=== PATIENT | male | born 1940 ===

== ENCOUNTER 2018-08-15 07:17 | Inpatient (IN) | payer MEDICARE ==
[2018-08-15] MEDS ORDERED: Midazolam 2 MG/2 ML VIAL ONE (07:33)
[2018-08-15] MEDS ORDERED: Rocuronium 10 mg/ml (5 ml) ONE ×4 (07:33→12:16)
[2018-08-15] MEDS ORDERED: Propofol 10 mg/ml Inj (20 ML) ONE (07:33)
[2018-08-15] MEDS ORDERED: Succinylcholine Chloride 20 mg/ml Syr (5 ml) IV ONE (07:39)
[2018-08-15] MEDS ORDERED: Sodium Chloride 0.9% 10 ML IV ONE (07:41)
[2018-08-15] MEDS ORDERED: ePHEDrine 50 mg/ml Inj ONE (07:41)
[2018-08-15] MEDS ORDERED: Neostigmine 1:1000 (1 mg/ml) Inj ONE (07:44)
[2018-08-15 08:03] VITALS: BMI 26.2
[2018-08-15] MEDS ORDERED: Lactated Ringer's 1,000 ML IV ONE ×3 (08:33→10:30)
--- NOTE | 2018-08-15 08:59 | CP.SDSHP ---
Same Day Surgery H & P - History Proposed Procedure: Robotic right hemicolectomy Pre-Op Diagnosis: colon CA - Previous Medical/Surgical History Pain: 0. No Pain - Allergies Allergies: Allergies No Known Allergies Allergy (Verified 08/15/18 07:28) - Physical Exam Vital Signs: Vital Signs 08/15/18 08/15/18 07:47 07:54 Temperature 97.6 F Pulse Rate 63 63 Respiratory 18 Rate Blood Pressure 132/70 O2 Sat by Pulse 98 Oximetry Neuro: WNL GI: WNL (Soft. nontender.) - {Optional Preform as Required} Abdomen: WNL - Impression Impression: 78M with PMHx of GERD, BPH, w/ hx of colon CA Pt. Evaluated Today:Candidate for Anesthesia & Procedure: Yes - Date & Time Date: 08/15/18 Time: 09:00 Short Stay Discharge - Short Stay Discharge Admitting Diagnosis/Reason for Visit: C18.9 Disposition: HOME/ ROUTINE
[2018-08-15 09:20] LABS: BASO # 0.1 K/uL (0.0-0.2); BASO % 1.2 % (0.0-2.0); EOS # 0.2 K/uL (0.0-0.7); EOS % 2.8 % (0.0-4.0); HEMOGLOBIN 14.3 g/dL (12.0-18.0); LYMPH % 16.8 % (20.0-40.0); MEAN CELL VOLUME 94.7 fl (80.0-94.0); MEAN CORPUSCULAR HEMOGLOBIN 31.5 pg (27.0-31.0); MEAN CORPUSCULAR HGB CONC 33.3 g/dL (33.0-37.0); MEAN PLATELET VOLUME 10.3 fl (7.2-11.7); MONO # 0.5 K/uL (0.0-0.8); NEUT # 4.1 K/uL (1.8-7.0); NEUT % 71.2 % (50.0-75.0); NRBC % 0.1 % (0.0-0.0); RBC 4.54 Mil/uL (4.40-5.90); RED CELL DISTRIBUTION WIDTH 13.7 % (11.5-14.5); WHITE BLOOD COUNT 5.7 K/uL (4.8-10.8)
[2018-08-15] MEDS ORDERED: Bupivacaine 0.5% Inj(30mL) ONE (09:25)
[2018-08-15] MEDS ORDERED: Etomidate 20 mg/10ml Inj IV ONE (09:39)
[2018-08-15] MEDS ORDERED: Morphine 1 mg/ml preservative-free Inj(Duramorph) ONE (10:18)
[2018-08-15] MEDS ORDERED: Sevoflurane - Inhalation Anesthetic Liq (250 ml) ONE (10:20)
[2018-08-15] MEDS ORDERED: Lactated Ringer's 500 ML IV ONE (13:30)
[2018-08-15] MEDS: Lactated Ringer's 1,000 ML IV SCH (14:35)
[2018-08-15] MEDS ORDERED: Naloxone 0.4 mg/ml Inj (Adult) IVP PRN (14:44)
--- NOTE | 2018-08-15 14:50 | PCM.SURG1 ---
Surgeon's Initial Post Op Note - Surgeon's Notes Surgeon: Dr. Patel Validation Scientist: Dr. Mckinley, Dr. Villafuerte PGY3 Type of Anesthesia: General Endo Pre-Operative Diagnosis: right colon CA Operative Findings: see operative report Post-Operative Diagnosis: see operative report Operation Performed: robotic right hemicolectomy Specimen/Specimens Removed: ascending colon. terminal ileum Estimated Blood Loss: EBL {In ML}: 500 Blood Products Given: N/A Drains Used: No Drains Post-Op Condition: Good Date of Surgery/Procedure: 08/15/18 Time of Surgery/Procedure: 10:00
--- NOTE | 2018-08-15 16:22 | RAD ---
Date of service: 08/15/2018 HISTORY: confirm NG tube placement COMPARISON: None available. FINDINGS: BOWEL: Limited evaluation of upper abdomen and lower chest. A nasogastric tube is seen in the right mainstem/right lower lobe bronchus extending to the level of the right hemidiaphragm. It is in appropriately positioned and should be repositioned or replaced. The abdominal bowel gas pattern is unremarkable. No masses or abnormal calcifications are identified. BONES: Normal. OTHER FINDINGS: None. IMPRESSION: Nasogastric tube in appropriately positioned in right mainstem/right lower lobe bronchus. This finding was discussed by telephone with the patient's nurse, Marjorie, at 4:16 p.m. on 08/15/2018. The nurse indicated that the nasogastric tube had already been removed in response to findings on this film.
[2018-08-15] MEDS: ceFAZolin 2 GM in Sodium Chloride 0.9% 100 ML IVPB SCH (17:01)
[2018-08-15 17:11] LABS: BASO % 0.4 % (0.0-2.0); EOS % 0.4 % (0.0-4.0); HEMOGLOBIN 13.5 g/dL (12.0-18.0); LYMPH # 0.8 K/uL (1.0-4.3); LYMPH % 9.9 % (20.0-40.0); MEAN CELL VOLUME 94.7 fl (80.0-94.0); MEAN CORPUSCULAR HEMOGLOBIN 31.8 pg (27.0-31.0); MEAN CORPUSCULAR HGB CONC 33.6 g/dL (33.0-37.0); MEAN PLATELET VOLUME 8.9 fl (7.2-11.7); MONO # 0.3 K/uL (0.0-0.8); MONO % 3.6 % (0.0-10.0); NEUT # 7.1 K/uL (1.8-7.0); NEUT % 85.7 % (50.0-75.0); PLATELET COUNT 182 K/uL (130-400); RBC 4.25 Mil/uL (4.40-5.90); RED CELL DISTRIBUTION WIDTH 13.8 % (11.5-14.5); WHITE BLOOD COUNT 8.3 K/uL (4.8-10.8)
[2018-08-15 17:28] LABS: BLOOD UREA NITROGEN 19 mg/dl (9-20); CALCIUM 8.7 mg/dL (8.4-10.2); GFR NON-AFRICAN AMERICAN > 60
[2018-08-15] MEDS ORDERED: Influenza Vaccine (5 YR UP)/PF 60 MCG/0.5 ML SYR IM ONE (17:47)
[2018-08-15] MEDS ORDERED: Influenza Vaccine 60 mcg/0.5 mL SYR (4YR UP) IM ONE (18:00)
--- NOTE | 2018-08-15 18:19 | CP.CCUPN ---
CCU Subjective - Physician Review Events Since Last Encounter (Free Text): 08/15/18 18:03 The patient was Seen/interviewed and examined by me at the bedside during ICU round, Medical records reviewed and Management issues were discussed and formulated with the house staff. Events reviewed Mr Salomon is a 78 Years old Female with PMHx of BPG, GERD, Arthritis, Cataract and recently diagnosed colon cancer Admitted to the ICU following Robotic right hemicolectomy Procedure done under General Anesthesia and was uneventful EBL:500 Patient was successfully extubated, admitted to ICU hemodynamically stable Alert, Awake, denies any chest pain or SOB CCU Objective - Vital Signs / Intake & Output Vital Signs (Last 4 hours): Vital Signs Temp Pulse Resp BP Pulse Ox 08/15/18 18:00 73 13 132/74 100 08/15/18 17:30 97.6 F 70 10 L 127/68 100 08/15/18 16:55 97.4 F L 65 16 123/67 99 08/15/18 16:40 97.6 F 64 19 112/64 97 08/15/18 16:25 97.7 F 67 17 125/67 96 08/15/18 16:05 64 17 118/67 96 08/15/18 15:50 97.1 F L 67 18 136/85 96 08/15/18 15:35 97.3 F L 67 18 129/71 100 08/15/18 15:20 96.3 F L 76 18 130/75 97 08/15/18 15:05 96.7 F L 74 19 130/64 100 08/15/18 14:50 96.5 F L 74 18 121/66 100 08/15/18 14:35 96.6 F L 77 18 134/79 100 Intake and Output (Last 8hrs): Intake & Output 08/15/18 08/15/18 08/15/18 06:59 14:59 22:59 Intake Total 2900 310 Output Total 200 500 Balance 2700 -190 Weight 167 lb Intake: IV 2900 310 Output: Urine 200 500 Urethral (Mathis) 150 Other: Voiding Method Toilet - Physical Exam Physical Exam Limitations: Positive for: Clinical Condition Head: Positive for: Atraumatic, Normocephalic Pupils: Positive for: PERRL Extroacular Muscles: Positive for: EOMI Conjunctiva: Positive for: Normal. Negative for: Injected, Icteric Respiratory/Chest: Positive for: Clear to Auscultation, Good Air Exchange. Negative for: Respiratory Distress, Accessory Muscle Use, Wheezes, Rales, Retracting Cardiovascular: Positive for: Regular Rate and Rhythm, Normal S1, S2, Peripheal Pulses Present. Negative for: Murmurs, Tachycardic, Bradycardic Abdomen: Positive for: Tenderness, Distention. Negative for: Normal Bowel Sounds Neurological: Positive for: GCS=15, CN II-XII Intact, Speech Normal, Motor Func Grossly Intact, Normal Sensory Function Psychiatric: Positive for: Alert, Oriented x 3, Normal Insight, Normal Concentration - Medications Active Medications: Active Medications Generic Name Dose Route Start Last Admin Trade Name Freq PRN Reason Stop Dose Admin Cefazolin Sodium 2 gm/ Sodium 100 mls @ 100 mls/hr 08/15/18 17:00 08/15/18 17:01 Chloride IVPB 08/16/18 01:59 10 mls Q8 KEIRY Administration Protocol Lactated Ringer's 1,000 mls @ 100 mls/hr 08/15/18 14:45 08/15/18 14:35 Lactated Ringer's IV 200 mls .Q10H KEIRY Administration Morphine Sulfate 0 mg 08/15/18 14:44 Morphine Clothing Man 1 Mg/Ml IV PRN PRN Pain, severe (8-10) Protocol Naloxone HCl 0.1 mg 08/15/18 14:44 Narcan IVP Q2M PRN Shortness of Breath Ondansetron HCl 4 mg 08/15/18 14:45 Zofran Inj IVP Q6 PRN Nausea/Vomiting Ondansetron HCl 4 mg 08/15/18 14:44 Zofran Inj IVP Q8 PRN Nausea/Vomiting Pantoprazole Sodium 40 mg 08/16/18 09:00 Protonix Inj IVP DAILY KEIRY - Patient Studies Lab Studies: Lab Studies 08/15/18 08/15/18 08/15/18 Range/Units 17:00 17:00 13:40 WBC 8.3 (4.8-10.8) K/uL RBC 4.25 L (4.40-5.90) Mil/uL Hgb 13.5 (12.0-18.0) g/dL Hct 40.3 (35.0-51.0) % MCV 94.7 H (80.0-94.0) fl MCH 31.8 H (27.0-31.0) pg MCHC 33.6 (33.0-37.0) g/dL RDW 13.8 (11.5-14.5) % Plt Count 182 (130-400) K/uL MPV 8.9 (7.2-11.7) fl Neut % (Auto) 85.7 H (50.0-75.0) % Lymph % (Auto) 9.9 L (20.0-40.0) % [place] % (Auto) 3.6 (0.0-10.0) % Eos % (Auto) 0.4 (0.0-4.0) % Baso % (Auto) 0.4 (0.0-2.0) % Neut # (Auto) 7.1 H (1.8-7.0) K/uL Lymph # (Auto) 0.8 L (1.0-4.3) K/uL [place] # (Auto) 0.3 (0.0-0.8) K/uL Eos # (Auto) 0.0 (0.0-0.7) K/uL Baso # (Auto) 0.0 (0.0-0.2) K/uL Sodium 138 (132-148) mmol/l Potassium 3.6 (3.6-5.0) MMOL/L Chloride 105 (98-107) mmol/L Carbon Dioxide 24 (22-30) mmol/L Anion Gap 13 (10-20) BUN 19 (9-20) mg/dl Creatinine 0.8 (0.8-1.5) mg/dl Est GFR ( Amer) > 60 Est GFR (Non-Af Amer) > 60 Random Glucose 107 (75-110) mg/dL Calcium 8.7 (8.4-10.2) mg/dL Phosphorus 3.4 (2.5-4.5) mg/dl Magnesium 1.8 (1.6-2.3) MG/DL Blood Type Blood Type Confirm A POSITIVE Antibody Screen Crossmatch BBK History Checked 08/15/18 08/15/18 08/15/18 Range/Units 09:20 08:14 08:14 WBC 5.7 (4.8-10.8) K/uL RBC 4.54 (4.40-5.90) Mil/uL Hgb 14.3 (12.0-18.0) g/dL Hct 43.0 (35.0-51.0) % MCV 94.7 H (80.0-94.0) fl MCH 31.5 H (27.0-31.0) pg MCHC 33.3 (33.0-37.0) g/dL RDW 13.7 (11.5-14.5) % Plt Count 219 (130-400) K/uL MPV 10.3 (7.2-11.7) fl Neut % (Auto) 71.2 (50.0-75.0) % Lymph % (Auto) 16.8 L (20.0-40.0) % [place] % (Auto) 8.0 (0.0-10.0) % Eos % (Auto) 2.8 (0.0-4.0) % Baso % (Auto) 1.2 (0.0-2.0) % Neut # (Auto) 4.1 (1.8-7.0) K/uL Lymph # (Auto) 1.0 (1.0-4.3) K/uL [place] # (Auto) 0.5 (0.0-0.8) K/uL Eos # (Auto) 0.2 (0.0-0.7) K/uL Baso # (Auto) 0.1 (0.0-0.2) K/uL Sodium (132-148) mmol/l Potassium (3.6-5.0) MMOL/L Chloride (98-107) mmol/L Carbon Dioxide (22-30) mmol/L Anion Gap (10-20) BUN (9-20) mg/dl Creatinine (0.8-1.5) mg/dl Est GFR ( Amer) Est GFR (Non-Af Amer) Random Glucose (75-110) mg/dL Calcium (8.4-10.2) mg/dL Phosphorus (2.5-4.5) mg/dl Magnesium (1.6-2.3) MG/DL Blood Type A POSITIVE Cancelled Blood Type Confirm Antibody Screen Negative Cancelled Crossmatch See Detail See Detail BBK History Checked No verified bt Cancelled Laboratory Results - last 24 hr 0108/15/18 08/15/18 08:14 08:14 09:20 WBC 5.7 RBC 4.54 Hgb 14.3 Hct 43.0 MCV 94.7 H MCH 31.5 H MCHC 33.3 RDW 13.7 Plt Count 219 MPV 10.3 Neut % (Auto) 71.2 Lymph % (Auto) 16.8 L [place] % (Auto) 8.0 Eos % (Auto) 2.8 Baso % (Auto) 1.2 Neut # (Auto) 4.1 Lymph # (Auto) 1.0 [place] # (Auto) 0.5 Eos # (Auto) 0.2 Baso # (Auto) 0.1 Sodium Potassium Chloride Carbon Dioxide Anion Gap BUN Creatinine Est GFR ( Amer) Est GFR (Non-Af Amer) Random Glucose Calcium Phosphorus Magnesium Blood Type Cancelled A POSITIVE Blood Type Confirm Antibody Screen Cancelled Negative Crossmatch See Detail See Detail BBK History Checked Cancelled No verified bt 08/15/18 08/15/18 08/15/18 13:40 17:00 17:00 WBC 8.3 RBC 4.25 L Hgb 13.5 Hct 40.3 MCV 94.7 H MCH 31.8 H MCHC 33.6 RDW 13.8 Plt Count 182 MPV 8.9 Neut % (Auto) 85.7 H Lymph % (Auto) 9.9 L [place] % (Auto) 3.6 Eos % (Auto) 0.4 Baso % (Auto) 0.4 Neut # (Auto) 7.1 H Lymph # (Auto) 0.8 L [place] # (Auto) 0.3 Eos # (Auto) 0.0 Baso # (Auto) 0.0 Sodium 138 Potassium 3.6 Chloride 105 Carbon Dioxide 24 Anion Gap 13 BUN 19 Creatinine 0.8 Est GFR ( Amer) > 60 Est GFR (Non-Af Amer) > 60 Random Glucose 107 Calcium 8.7 Phosphorus 3.4 Magnesium 1.8 Blood Type Blood Type Confirm A POSITIVE Antibody Screen Crossmatch BBK History Checked Radiology Impressions: Radiology Impressions Abdomen X-Ray 08/15/18 15:00 IMPRESSION: Nasogastric tube in appropriately positioned in right mainstem/right lower lobe bronchus. This finding was discussed by telephone with the patient's nurse, Marjorie, at 4:16 p.m. on 08/15/2018. The nurse indicated that the nasogastric tube had already been removed in response to findings on this film. Review of Systems - Constitutional Constitutional: absent: Fever, Chills, Sweats, Weakness, Malaise - Cardiovascular Cardiovascular: absent: Chest Pain, Chest Pain at Rest, Chest Pain with Activity, Claudication, Diaphoresis - Respiratory Respiratory: absent: Cough, Dyspnea, Hemoptysis, Dyspnea on Exertion, Wheezing, Snoring - Gastrointestinal Gastrointestinal: Abdominal Pain. absent: Nausea, Vomiting Critical Care Progress Note - Extremities/Vascular Does the Patient have a Central Venous Catheter?: No Does the Patient need a Central Venous Catheter?: No Does the Patient have a Mathis Catheter?: Yes Does the Patient need a Mathis Catheter?: Yes - Nutrition Nutrition: Nutrition Category Date Time Status NPO Diet [DIET] Diets 08/15/18 Lunch Active Assessment/Plan (1) Status post right hemicolectomy Current Visit: Yes Status: Acute Priority: High - Assessment and Plan (Free Text) Assessment: Admit to SICU for hemodynamic monitoring, STAT LABS/LYTES/CBC NG tube to LIS Monitor Respiratory status for Respiratory depression PRN Naloxone for RR<8 IV Hydration with LR @ 100 ml/hr Perioperative Antibiotics as per surgery Pain control with MORPHIN EMBEDDED SOFTWARE DESIGN ENGINEER NPO Clear liquid diet, Advance as tolerate Bowel regimen PT/OT in AM Monitor urine output Mathis to be removed tomorrow PRN Ondansetron Wound care as per surgery OOB chair in AM Incentive spirometry GI/DVT PPX with SCDs, Start LMWH IN AM if no bleed
[2018-08-15 18:57] LABS: BANDS 3 % (0-2); EOSINOPHIL 1 % (0-7); HYPERSEGMENTATION PRESENT; LYMPHOCYTE 10 % (20-50); MONOCYTE 4 % (0-10); NEUTROPHIL 82 % (42-75); PLATELET ESTIMATE NORMAL (NORMAL); TOTAL CELLS COUNTED 100; TOXIC GRANULATION PRESENT
--- NOTE | 2018-08-15 21:14 | CP.PCM.PN ---
Subjective - Date & Time of Evaluation Date of Evaluation: 08/15/18 Time of Evaluation: 21:00 - Subjective Subjective: Resting comfortably. NG tube and martínez in & functioning with clear fluids. No pain. CPE - VSS. Lungs clear. COR-No murmur. Abd - soft, minimal wound tenderness. BS PRESENT. Nondistended. Ext - no edema. IV sites OK. Neuro - grossly WNL. Alert & understands all discussions RE OR findings. LABS - OK. CBC - 8300 13.5/40. 2 units PC T&C on hold. BMP - OK. IMP- 1. 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 Present for entire surgery. Processing of pathology specimen discussed with pathologist. 2. BPH; martínez in place. PLAN - 1. Breathing exercises demonstrated. 2. Continue NG and martínez. 3. Follow CBC & CMP. Objective - Vital Signs/Intake and Output Vital Signs (last 24 hours): Temp Pulse Resp BP Pulse Ox 97.6 F 73 13 132/74 100 08/15/18 17:30 08/15/18 18:00 08/15/18 18:00 08/15/18 18:00 08/15/18 18:00 Intake and Output: 08/15/18 08/16/18 18:59 06:59 Intake Total 3210 100 Output Total 700 70 Balance 2510 30 - Medications Medications: Current Medications Hydromorphone HCl (Dilaudid) 1 mg IVP Q4 PRN PRN Reason: Pain, moderate (4-7) Cefazolin Sodium 2 gm/ Sodium (Chloride) 100 mls @ 100 mls/hr IVPB Q8 KEIRY; Protocol Stop: 08/16/18 01:59 Last Admin: 08/15/18 17:01 Dose: 10 mls Lactated Ringer's (Lactated Ringer's) 1,000 mls @ 100 mls/hr IV .Q10H KEIRY Last Admin: 08/15/18 14:35 Dose: 200 mls Morphine Sulfate (Morphine School Librarian 1 Mg/Ml) 0 mg IV PRN PRN; Protocol PRN Reason: Pain, severe (8-10) Naloxone HCl (Narcan) 0.1 mg IVP Q2M PRN PRN Reason: Shortness of Breath Ondansetron HCl (Zofran Inj) 4 mg IVP Q6 PRN PRN Reason: Nausea/Vomiting Ondansetron HCl (Zofran Inj) 4 mg IVP Q8 PRN PRN Reason: Nausea/Vomiting Pantoprazole Sodium (Protonix Inj) 40 mg IVP DAILY KEIRY - Labs Labs: 08/15/18 17:00 08/15/18 17:00
[2018-08-16] MEDS: Lactated Ringer's 1,000 ML IV SCH ×4 (00:45→22:47)
[2018-08-16] MEDS: ceFAZolin 2 GM in Sodium Chloride 0.9% 100 ML IVPB SCH (01:00)
[2018-08-16 05:58] LABS: BASO % 0.2 % (0.0-2.0); HEMOGLOBIN 12.2 g/dL (12.0-18.0); LYMPH # 0.4 K/uL (1.0-4.3); LYMPH % 5.1 % (20.0-40.0); MEAN CELL VOLUME 93.5 fl (80.0-94.0); MEAN CORPUSCULAR HEMOGLOBIN 31.3 pg (27.0-31.0); MEAN CORPUSCULAR HGB CONC 33.5 g/dL (33.0-37.0); MEAN PLATELET VOLUME 9.7 fl (7.2-11.7); MONO # 0.4 K/uL (0.0-0.8); MONO % 4.5 % (0.0-10.0); NEUT # 7.4 K/uL (1.8-7.0); NEUT % 90.2 % (50.0-75.0); NRBC % 0.1 % (0.0-0.0); PLATELET COUNT 185 K/uL (130-400); RED CELL DISTRIBUTION WIDTH 13.7 % (11.5-14.5); WHITE BLOOD COUNT 8.2 K/uL (4.8-10.8)
[2018-08-16 06:24] LABS: BLOOD UREA NITROGEN 15 mg/dl (9-20); CALCIUM 8.5 mg/dL (8.4-10.2); GFR NON-AFRICAN AMERICAN > 60
[2018-08-16 09:52] LABS: BANDS 4 % (0-2); LYMPHOCYTE 5 % (20-50); MONOCYTE 4 % (0-10); NEUTROPHIL 87 % (42-75); TOTAL CELLS COUNTED 100
[2018-08-16 09:53] LABS: PLATELET ESTIMATE NORMAL (NORMAL)
[2018-08-16 09:54] LABS: OVALOCYTES SLIGHT; SCHISTOCYTES SLIGHT; TEARDROP CELLS SLIGHT; TOXIC GRANULATION PRESENT
--- NOTE | 2018-08-16 11:50 | CP.PCM.PN ---
Subjective - Date & Time of Evaluation Date of Evaluation: 08/16/18 Time of Evaluation: 11:48 - Subjective Subjective: SURGERY NOTE FOR DR. TONY 78M seen and examined at bedside. Patient denies pain, denies nausea or vomiting. He also denies fevers and chills. He denies any flatus, or bowel movements. Objective - Vital Signs/Intake and Output Vital Signs (last 24 hours): Temp Pulse Resp BP Pulse Ox 97.7 F 75 8 L 113/62 95 08/16/18 09:00 08/16/18 09:00 08/16/18 09:00 08/16/18 09:00 08/16/18 09:00 Intake and Output: 08/16/18 08/16/18 06:59 18:59 Intake Total 1100 200 Output Total 970 Balance 130 200 - Medications Medications: Current Medications Hydromorphone HCl (Dilaudid) 1 mg IVP Q4 PRN PRN Reason: Pain, moderate (4-7) Last Admin: 08/16/18 06:02 Dose: 1 mg Lactated Ringer's (Lactated Ringer's) 1,000 mls @ 100 mls/hr IV .Q10H [facility] Last Admin: 08/16/18 00:45 Dose: 100 mls/hr Morphine Sulfate (Morphine Personal Support Worker 1 Mg/Ml) 0 mg IV PRN PRN; Protocol PRN Reason: Pain, severe (8-10) Naloxone HCl (Narcan) 0.1 mg IVP Q2M PRN PRN Reason: Shortness of Breath Ondansetron HCl (Zofran Inj) 4 mg IVP Q6 PRN PRN Reason: Nausea/Vomiting Ondansetron HCl (Zofran Inj) 4 mg IVP Q8 PRN PRN Reason: Nausea/Vomiting Pantoprazole Sodium (Protonix Inj) 40 mg IVP DAILY [facility] Last Admin: 08/16/18 08:29 Dose: 40 mg - Labs Labs: 08/16/18 04:10 08/16/18 04:10 - Constitutional Appears: Non-toxic, No Acute Distress - Respiratory Exam Respiratory Exam: Clear to Ausculation Bilateral, NORMAL BREATHING PATTERN - Cardiovascular Exam Cardiovascular Exam: REGULAR RHYTHM, +S1, +S2 - GI/Abdominal Exam GI & Abdominal Exam: Soft, Tenderness. absent: Distended, Firm, Guarding, Rigid, Rebound Additional comments: dressing CDI - Extremities Exam Extremities Exam: absent: Pedal Edema, Tenderness - Neurological Exam Neurological Exam: Alert, Awake - Skin Skin Exam: Dry, Normal Color, Warm Assessment and Plan - Assessment and Plan (Free Text) Assessment: 78m S/P Robotic right hemicolectomy with anastomosis POD#1 Plan: - npo - IVF - pain control - Monitor urine output - Monitor NGT - OOB and ambulating Further recs discuss with Dr. Jorge Danielle, PGY3
--- NOTE | 2018-08-16 12:34 | CP.PCM.PN ---
Subjective - Date & Time of Evaluation Date of Evaluation: 08/16/18 Time of Evaluation: 12:32 - Subjective Subjective: Alert verbal, no c/o cp or sob. POD #1 Objective - Vital Signs/Intake and Output Vital Signs (last 24 hours): Temp Pulse Resp BP Pulse Ox 98.2 F 71 9 L 117/55 L 96 08/16/18 12:00 08/16/18 10:00 08/16/18 10:00 08/16/18 10:00 08/16/18 10:00 Intake and Output: 08/16/18 08/16/18 06:59 18:59 Intake Total 1100 600 Output Total 970 50 Balance 130 550 - Medications Medications: Current Medications Hydromorphone HCl (Dilaudid) 1 mg IVP Q4 PRN PRN Reason: Pain, moderate (4-7) Last Admin: 08/16/18 06:02 Dose: 1 mg Lactated Ringer's (Lactated Ringer's) 1,000 mls @ 100 mls/hr IV .Q10H [facility] Last Admin: 08/16/18 00:45 Dose: 100 mls/hr Morphine Sulfate (Morphine Manager Electrical 1 Mg/Ml) 0 mg IV PRN PRN; Protocol PRN Reason: Pain, severe (8-10) Naloxone HCl (Narcan) 0.1 mg IVP Q2M PRN PRN Reason: Shortness of Breath Ondansetron HCl (Zofran Inj) 4 mg IVP Q6 PRN PRN Reason: Nausea/Vomiting Ondansetron HCl (Zofran Inj) 4 mg IVP Q8 PRN PRN Reason: Nausea/Vomiting Pantoprazole Sodium (Protonix Inj) 40 mg IVP DAILY [facility] Last Admin: 08/16/18 08:29 Dose: 40 mg - Labs Labs: 08/16/18 04:10 08/16/18 04:10 - Constitutional Appears: No Acute Distress - Respiratory Exam Respiratory Exam: Clear to Ausculation Bilateral - Cardiovascular Exam Cardiovascular Exam: REGULAR RHYTHM - GI/Abdominal Exam GI & Abdominal Exam: Soft - Extremities Exam Extremities Exam: Normal Inspection Assessment and Plan - Assessment and Plan (Free Text) Assessment: Hemodynamically stable POD #1 Hb stable Doing well
--- NOTE | 2018-08-16 22:01 | CP.PCM.PN ---
Subjective - Date & Time of Evaluation Date of Evaluation: 08/16/18 Time of Evaluation: 21:30 - Subjective Subjective: Resting comfortably. NG tube and martínez in & functioning with clear fluids. Minimal pain. Has sensation of BM but no flatus. CPE - VSS. Lungs clear. COR-No murmur. Abd - soft, minimal wound tenderness. BS PRESENT but decreased. Slightly distended. Ext - Minimal edema. IV sites in left hand swollen. Nurse Val notified. Neuro - grossly WNL. Conversive. LABS - OK. Hb/HCT down to 12/36. wbc 8200. K up to 3.8 IMP- 1. 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 2. BPH; martínez in place. PLAN - 1. To continue breathing exercises. 2. Continue NG and martínez for now. 3. Follow CBC & CMP. 4. IV to be changed to right arm. Objective - Vital Signs/Intake and Output Vital Signs (last 24 hours): Temp Pulse Resp BP Pulse Ox 98.3 F 78 20 124/73 94 L 08/16/18 15:53 08/16/18 15:53 08/16/18 15:53 08/16/18 15:53 08/16/18 15:53 Intake and Output: 08/16/18 08/17/18 18:59 06:59 Intake Total 1200 Output Total 550 Balance 650 - Medications Medications: Current Medications Hydromorphone HCl (Dilaudid) 1 mg IVP Q4 PRN PRN Reason: Pain, moderate (4-7) Last Admin: 08/16/18 18:38 Dose: 1 mg Lactated Ringer's (Lactated Ringer's) 1,000 mls @ 100 mls/hr IV .Q10H [facility] Last Admin: 08/16/18 14:04 Dose: 100 mls/hr Naloxone HCl (Narcan) 0.1 mg IVP Q2M PRN PRN Reason: Shortness of Breath Ondansetron HCl (Zofran Inj) 4 mg IVP Q6 PRN PRN Reason: Nausea/Vomiting Ondansetron HCl (Zofran Inj) 4 mg IVP Q8 PRN PRN Reason: Nausea/Vomiting Pantoprazole Sodium (Protonix Inj) 40 mg IVP DAILY [facility] Last Admin: 08/16/18 08:29 Dose: 40 mg - Labs Labs: 08/16/18 04:10 08/16/18 04:10
[2018-08-17] MEDS: Lactated Ringer's 1,000 ML IV SCH ×3 (06:45→17:37)
--- NOTE | 2018-08-17 08:28 | CP.PCM.PN ---
Subjective - Date & Time of Evaluation Date of Evaluation: 08/17/18 Time of Evaluation: 06:50 - Subjective Subjective: Patient seen and examined. No acute events over night. Denies passing flatus. 50cc bilious output from NGT. 500ccs UOP from martínez. Objective - Vital Signs/Intake and Output Vital Signs (last 24 hours): Temp Pulse Resp BP Pulse Ox 97.8 F 71 19 101/54 L 96 08/17/18 00:04 08/17/18 00:04 08/17/18 00:04 08/17/18 00:04 08/17/18 00:04 Intake and Output: 08/17/18 08/17/18 06:59 18:59 Intake Total 1200 Output Total 700 Balance 500 - Medications Medications: Current Medications Enoxaparin Sodium (Lovenox) 40 mg SC DAILY [facility]; Protocol Hydromorphone HCl (Dilaudid) 1 mg IVP Q4 PRN PRN Reason: Pain, moderate (4-7) Last Admin: 08/17/18 04:48 Dose: 1 mg Lactated Ringer's (Lactated Ringer's) 1,000 mls @ 100 mls/hr IV .Q10H [facility] Last Admin: 08/17/18 06:45 Dose: Not Given Naloxone HCl (Narcan) 0.1 mg IVP Q2M PRN PRN Reason: Shortness of Breath Ondansetron HCl (Zofran Inj) 4 mg IVP Q6 PRN PRN Reason: Nausea/Vomiting Ondansetron HCl (Zofran Inj) 4 mg IVP Q8 PRN PRN Reason: Nausea/Vomiting Pantoprazole Sodium (Protonix Inj) 40 mg IVP DAILY [facility] Last Admin: 08/16/18 08:29 Dose: 40 mg - Labs Labs: 08/16/18 04:10 08/16/18 04:10 - Constitutional Appears: Non-toxic, No Acute Distress - Head Exam Head Exam: NORMOCEPHALIC - Eye Exam Eye Exam: EOMI, Normal appearance - ENT Exam ENT Exam: Mucous Membranes Moist - Respiratory Exam Respiratory Exam: NORMAL BREATHING PATTERN - Cardiovascular Exam Cardiovascular Exam: +S1, +S2 - GI/Abdominal Exam GI & Abdominal Exam: Soft, Tenderness. absent: Distended, Firm, Guarding, Rigid, Rebound - Neurological Exam Neurological Exam: Alert, Awake, Oriented x3 - Psychiatric Exam Psychiatric exam: Normal Mood - Skin Skin Exam: Dry, Intact, Warm Assessment and Plan - Assessment and Plan (Free Text) Assessment: 78M s/p robotic right hemicolectomy POD2 Plan: NPO with sips IVF Analgesics prn Anti emetics prn DVT ppx Encourage IS use Encourage ambulation D/w Dr. Jorge Connor PGY3
[2018-08-17 08:54] LABS: BASO % 0.4 % (0.0-2.0); EOS # 0.1 K/uL (0.0-0.7); EOS % 0.6 % (0.0-4.0); HEMOGLOBIN 11.1 g/dL (12.0-18.0); LYMPH # 0.6 K/uL (1.0-4.3); LYMPH % 6.7 % (20.0-40.0); MEAN CELL VOLUME 95.3 fl (80.0-94.0); MEAN CORPUSCULAR HEMOGLOBIN 30.8 pg (27.0-31.0); MEAN CORPUSCULAR HGB CONC 32.3 g/dL (33.0-37.0); MEAN PLATELET VOLUME 9.3 fl (7.2-11.7); MONO # 0.6 K/uL (0.0-0.8); MONO % 6.6 % (0.0-10.0); NEUT # 7.8 K/uL (1.8-7.0); NEUT % 85.7 % (50.0-75.0); NRBC % 0.1 % (0.0-0.0); RBC 3.6 Mil/uL (4.40-5.90); WHITE BLOOD COUNT 9.1 K/uL (4.8-10.8)
[2018-08-17 09:06] LABS: BLOOD UREA NITROGEN 18 mg/dl (9-20); CALCIUM 8.5 mg/dL (8.4-10.2); GFR NON-AFRICAN AMERICAN > 60
[2018-08-17] MEDS ORDERED: Potassium & Sodium Phosphate PO ONE (12:00)
--- NOTE | 2018-08-17 12:27 | CP.PCM.PN ---
Subjective - Date & Time of Evaluation Date of Evaluation: 08/17/18 Time of Evaluation: 12:25 - Subjective Subjective: no c/o cp or sob. Some discomfort with martínez. Having bowel movement this am Objective - Vital Signs/Intake and Output Vital Signs (last 24 hours): Temp Pulse Resp BP Pulse Ox 99.2 F 72 20 119/67 97 08/17/18 08:37 08/17/18 08:37 08/17/18 08:37 08/17/18 08:37 08/17/18 08:37 Intake and Output: 08/17/18 08/17/18 06:59 18:59 Intake Total 1200 Output Total 700 Balance 500 - Medications Medications: Current Medications Enoxaparin Sodium (Lovenox) 40 mg SC DAILY [facility]; Protocol Hydromorphone HCl (Dilaudid) 1 mg IVP Q4 PRN PRN Reason: Pain, moderate (4-7) Last Admin: 08/17/18 04:48 Dose: 1 mg Lactated Ringer's (Lactated Ringer's) 1,000 mls @ 100 mls/hr IV .Q10H [facility] Last Admin: 08/17/18 09:26 Dose: 100 mls/hr Naloxone HCl (Narcan) 0.1 mg IVP Q2M PRN PRN Reason: Shortness of Breath Ondansetron HCl (Zofran Inj) 4 mg IVP Q6 PRN PRN Reason: Nausea/Vomiting Ondansetron HCl (Zofran Inj) 4 mg IVP Q8 PRN PRN Reason: Nausea/Vomiting Pantoprazole Sodium (Protonix Inj) 40 mg IVP DAILY [facility] Last Admin: 08/17/18 09:31 Dose: 40 mg - Labs Labs: 08/17/18 08:42 08/17/18 08:42 - Respiratory Exam Respiratory Exam: Clear to Ausculation Bilateral - Cardiovascular Exam Cardiovascular Exam: REGULAR RHYTHM - GI/Abdominal Exam GI & Abdominal Exam: Normal Bowel Sounds Assessment and Plan - Assessment and Plan (Free Text) Assessment: Stable POD #2 Labs reviewed Hemodynamically stable
[2018-08-17] MEDS: Enoxaparin 40 mg Syringe SC SCH (12:57)
[2018-08-18] MEDS: Lactated Ringer's 1,000 ML IV SCH (03:00)
--- NOTE | 2018-08-18 07:53 | CP.PCM.PN ---
Subjective - Date & Time of Evaluation Date of Evaluation: 08/18/18 Time of Evaluation: 06:45 - Subjective Subjective: Patient seen and examined. No acute events over night. Passing flatus. Voiding. No n/v. Objective - Vital Signs/Intake and Output Vital Signs (last 24 hours): Temp Pulse Resp BP Pulse Ox 98 F 94 H 19 131/74 95 08/18/18 00:19 08/18/18 00:19 08/18/18 00:19 08/18/18 00:19 08/18/18 00:19 Intake and Output: 08/18/18 08/18/18 06:59 18:59 Output Total 150 Balance -150 - Medications Medications: Current Medications Enoxaparin Sodium (Lovenox) 40 mg SC DAILY KEIRY; Protocol Last Admin: 08/17/18 12:57 Dose: 40 mg Home Med (Omeprazole [Omeprazole]) 40 mg PO DAILY KEIRY Potassium Chloride/Dextrose/Sod Cl (Potassium Chl 20 Meq In D5-1/2ns) 1,000 mls @ 100 mls/hr IV .Q10H KEIRY Stop: 08/19/18 07:42 Naloxone HCl (Narcan) 0.1 mg IVP Q2M PRN PRN Reason: Shortness of Breath Ondansetron HCl (Zofran Inj) 4 mg IVP Q6 PRN PRN Reason: Nausea/Vomiting Ondansetron HCl (Zofran Inj) 4 mg IVP Q8 PRN PRN Reason: Nausea/Vomiting - Labs Labs: 08/17/18 08:42 08/17/18 08:42 - Constitutional Appears: No Acute Distress - Head Exam Head Exam: NORMOCEPHALIC - Eye Exam Eye Exam: EOMI, Normal appearance - ENT Exam ENT Exam: Mucous Membranes Moist - Respiratory Exam Respiratory Exam: NORMAL BREATHING PATTERN - Cardiovascular Exam Cardiovascular Exam: +S1, +S2 - GI/Abdominal Exam GI & Abdominal Exam: Soft - Neurological Exam Neurological Exam: Alert, Awake, Oriented x3 - Psychiatric Exam Psychiatric exam: Normal Mood - Skin Skin Exam: Dry, Intact, Warm Assessment and Plan - Assessment and Plan (Free Text) Assessment: 78M s/p robotic right hemicolectomy with primary anastomosis POD3 Plan: Adv to soft diet PO analgesic prn Antiemetics prn DVT ppx Encourage IS use Encourage ambulation D/w Dr. Jorge Connor PGY3
[2018-08-18] MEDS: Enoxaparin 40 mg Syringe SC SCH (08:57)
[2018-08-18] MEDS: Pantoprazole 40 mg EC Tab PO SCH (08:59)
[2018-08-18 09:40] LABS: HEMOGLOBIN 14.5 g/dL (12.0-18.0); MEAN CELL VOLUME 94.1 fl (80.0-94.0); MEAN CORPUSCULAR HEMOGLOBIN 31.4 pg (27.0-31.0); MEAN CORPUSCULAR HGB CONC 33.4 g/dL (33.0-37.0); RBC 4.61 Mil/uL (4.40-5.90); RED CELL DISTRIBUTION WIDTH 13.9 % (11.5-14.5); WHITE BLOOD COUNT 11.1 K/uL (4.8-10.8)
[2018-08-18 09:49] LABS: BLOOD UREA NITROGEN 24 mg/dl (9-20); CALCIUM 9.4 mg/dL (8.4-10.2); GFR NON-AFRICAN AMERICAN > 60
[2018-08-18] MEDS: Potassium Ch 20mEq in D5-1/2NS 1,000 ML IV SCH ×2 (11:13→17:47)
--- NOTE | 2018-08-18 12:39 | CP.PCM.PN ---
Subjective - Date & Time of Evaluation Date of Evaluation: 08/18/18 Time of Evaluation: 12:30 - Subjective Subjective: Ambulating slowly. Haveng some diarrhea, no blood. NG tube and martínez out. Minimal pain when sitting up. Tolerating some food but increased belching on PPI. CPE - VSS. Lungs LEFT clear, right some decreased breath sounds that clear with cough. COR-No murmur. Abd - soft, minimal wound tenderness. BS present minimal distension. Ext - No edema. IV ouut. Neuro - grossly WNL. Some weakness. LABS - Hb/HCT [place] 14.5/43 [place] [address] [place] 9100. BMP - BUN 18 -> 24. IMP- 1. Mild atelectasis. 2. 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 3. BPH. 4. Some GERD. PLAN - 1. Continue PPI. 2. Continue OOB with breating exercises. 3. Follow CBC & CMP. 4. Small multiple meals. Objective - Vital Signs/Intake and Output Vital Signs (last 24 hours): Temp Pulse Resp BP Pulse Ox 97.7 F 86 20 138/85 94 L 08/18/18 08:09 08/18/18 08:09 08/18/18 08:09 08/18/18 08:09 08/18/18 08:09 Intake and Output: 08/18/18 08/18/18 06:59 18:59 Output Total 150 Balance -150 - Medications Medications: Current Medications Enoxaparin Sodium (Lovenox) 40 mg SC DAILY KEIRY; Protocol Last Admin: 08/18/18 08:57 Dose: 40 mg Potassium Chloride/Dextrose/Sod Cl (Potassium Chl 20 Meq In D5-1/2ns) 1,000 mls @ 100 mls/hr IV .Q10H KEIRY Stop: 08/19/18 07:42 Last Admin: 08/18/18 11:13 Dose: 100 mls/hr Naloxone HCl (Narcan) 0.1 mg IVP Q2M PRN PRN Reason: Shortness of Breath Ondansetron HCl (Zofran Inj) 4 mg IVP Q6 PRN PRN Reason: Nausea/Vomiting Ondansetron HCl (Zofran Inj) 4 mg IVP Q8 PRN PRN Reason: Nausea/Vomiting Pantoprazole Sodium (Protonix Ec Tab) 40 mg PO DAILY KEIRY Last Admin: 08/18/18 08:59 Dose: 40 mg Tramadol HCl (Ultram) 50 mg PO Q6 PRN PRN Reason: Pain, moderate (4-7) - Labs Labs: 08/18/18 09:29 08/18/18 09:29
[2018-08-19] MEDS: Potassium Ch 20mEq in D5-1/2NS 1,000 ML IV SCH (03:45)
--- NOTE | 2018-08-19 07:57 | CP.PCM.DIS ---
Provider - Provider Date of Admission: 08/15/18 14:41 Attending physician: Griffin Patel MD Consults: 08/15/18 14:51 Physician Consult Routine Comment: Consulting Provider: Raulito Castellanos Consulting Physician: Raulito Castellanos Reason for Consult: s/p right hemicolectomy, EBL ~500ccs 08/15/18 17:06 Physician Consult Routine Comment: Consulting Provider: Sachin Sutton Consulting Physician: Sachin Sutton Reason for Consult: s/p right hemicolectomy, EBL~500cc. Known to pt Time Spent in preparation of Discharge (in minutes): 20 Hospital Course - Lab Results Lab Results: Micro Results 08/15/18 10:11 Naris MRSA Culture (Admit) - Final MRSA NOT DETECTED Most Recent Lab Values WBC 11.1 K/uL (4.8-10.8) H 08/18/18 09:29 RBC 4.61 Mil/uL (4.40-5.90) 08/18/18 09:29 Hgb 14.5 g/dL (12.0-18.0) D 08/18/18 09:29 Hct 43.4 % (35.0-51.0) 08/18/18 09:29 MCV 94.1 fl (80.0-94.0) H 08/18/18 09:29 MCH 31.4 pg (27.0-31.0) H 08/18/18 09:29 MCHC 33.4 g/dL (33.0-37.0) 08/18/18 09:29 RDW 13.9 % (11.5-14.5) 08/18/18 09:29 Plt Count 266 K/uL (130-400) 08/18/18 09:29 MPV 9.3 fl (7.2-11.7) 08/17/18 08:42 Neut % (Auto) 85.7 % (50.0-75.0) H 08/17/18 08:42 Lymph % (Auto) 6.7 % (20.0-40.0) L 08/17/18 08:42 Conway % (Auto) 6.6 % (0.0-10.0) 08/17/18 08:42 Eos % (Auto) 0.6 % (0.0-4.0) 08/17/18 08:42 Baso % (Auto) 0.4 % (0.0-2.0) 08/17/18 08:42 Neut # (Auto) 7.8 K/uL (1.8-7.0) H 08/17/18 08:42 Lymph # (Auto) 0.6 K/uL (1.0-4.3) L 08/17/18 08:42 Conway # (Auto) 0.6 K/uL (0.0-0.8) 08/17/18 08:42 Eos # (Auto) 0.1 K/uL (0.0-0.7) 08/17/18 08:42 Baso # (Auto) 0.0 K/uL (0.0-0.2) 08/17/18 08:42 Neutrophils % (Manual) 87 % (42-75) H 08/16/18 04:10 Band Neutrophils % 4 % (0-2) H 08/16/18 04:10 Lymphocytes % (Manual) 5 % (20-50) L 08/16/18 04:10 Monocytes % (Manual) 4 % (0-10) 08/16/18 04:10 Eosinophils % (Manual) 1 % (0-7) 08/15/18 17:00 Hypersegmented Polys Present 08/15/18 17:00 Toxic Granulation Present 08/16/18 04:10 Platelet Estimate Normal (NORMAL) 08/16/18 04:10 Tear Drop Cells Slight 08/16/18 04:10 Ovalocytes Slight 08/16/18 04:10 Schistocytes Slight 08/16/18 04:10 Sodium 138 mmol/l (132-148) 08/18/18 09:29 Potassium 3.8 MMOL/L (3.6-5.0) 08/18/18 09:29 Chloride 101 mmol/L (98-107) 08/18/18 09:29 Carbon Dioxide 27 mmol/L (22-30) 08/18/18 09:29 Anion Gap 14 (10-20) 08/18/18 09:29 BUN 24 mg/dl (9-20) H 08/18/18 09:29 Creatinine 1.0 mg/dl (0.8-1.5) 08/18/18 09:29 Est GFR ( Amer) > 60 08/18/18 09:29 Est GFR (Non-Af Amer) > 60 08/18/18 09:29 Random Glucose 111 mg/dL (75-110) H 08/18/18 09:29 Calcium 9.4 mg/dL (8.4-10.2) 08/18/18 09:29 Phosphorus 3.3 mg/dl (2.5-4.5) 08/18/18 09:29 Magnesium 2.1 MG/DL (1.6-2.3) 08/18/18 09:29 Blood Type A POSITIVE 08/15/18 09:20 Blood Type Confirm A POSITIVE 08/15/18 13:40 Antibody Screen Negative 08/15/18 09:20 Crossmatch See Detail 08/15/18 09:20 BBK History Checked No verified bt 08/15/18 09:20 - Hospital Course Hospital Course: 78M patient presented for elective robotic right hemicolectomy on 08/15/18. Patient's postoperative course was unremarkable. He is currently tolerating soft regular diet and ambulating with no issues. Skin incision sites are healing appropriately. Will discharge today. To follow up with Dr. Patel in 1 week. Above is a brief summary of patient's hospital course, for more details please refer to medical records. Discharge Exam - Head Exam Head Exam: NORMOCEPHALIC - Eye Exam Eye Exam: EOMI, Normal appearance - ENT Exam ENT Exam: Mucous Membranes Moist - Respiratory Exam Respiratory Exam: NORMAL BREATHING PATTERN - Cardiovascular Exam Cardiovascular Exam: +S1, +S2 - GI/Abdominal Exam GI & Abdominal Exam: Soft. absent: Distended, Firm, Guarding, Hernia, Rebound, Rigid - Neurological Exam Neurological exam: Alert, Oriented x3 - Psychiatric Exam Psychiatric exam: Normal Mood - Skin Skin Exam: Dry, Intact, Warm Discharge Plan - Follow Up Plan Condition: GOOD Disposition: HOME/ ROUTINE Instructions: Colectomy, Partial and Total, (DC) Additional Instructions: hacer jaja con mcneil primario y cirujano dentro de 1 semana Referrals: Fransisco Yeung MD [Staff Provider] - Sachin Sutton MD [Staff Provider] - Griffin Patel MD [Medical Doctor] -
[2018-08-19 08:38] VITALS: BP 132/79; PULSE 72; RESP 20; TEMP 98.1; O2SAT 94
[2018-08-19] MEDS: Enoxaparin 40 mg Syringe SC SCH (09:03)
[2018-08-19] MEDS: Pantoprazole 40 mg EC Tab PO SCH (09:04)
--- NOTE | 2018-08-19 09:13 | CP.PCM.PN ---
Subjective - Date & Time of Evaluation Date of Evaluation: 08/19/18 Time of Evaluation: 09:07 - Subjective Subjective: Still with some diarrhea, yellow, no blood. Ambulating OK. Tolerating diet on PPI. CPE - VSS. Lungs R & L clear. COR-No murmur. Abd - soft, wounds clean, nortender. BS present, ND. Ext - No edema. LABS - Hb/HCT [place] 14.5/[address] [place] [address] from 9100. BMP - BUN 18 -> 24. IMP- 1. Diarrhea. 2. Resolved mild atelectasis. 3. 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 5. Stable GERD. PLAN - 1. Continue PPI. 2. Stool for CD. 3. Follow CBC & CMP PRN. 4. Multiple small meals. 5. For D/C and fu as OPT. Objective - Vital Signs/Intake and Output Vital Signs (last 24 hours): Temp Pulse Resp BP Pulse Ox 98.1 F 72 20 132/79 94 L 08/19/18 08:57 08/19/18 08:57 08/19/18 08:57 08/19/18 08:57 08/19/18 08:57 - Medications Medications: Current Medications Enoxaparin Sodium (Lovenox) 40 mg SC DAILY REPLACED BY [facility]; Protocol Last Admin: 08/19/18 09:03 Dose: 40 mg Naloxone HCl (Narcan) 0.1 mg IVP Q2M PRN PRN Reason: Shortness of Breath Ondansetron HCl (Zofran Inj) 4 mg IVP Q6 PRN PRN Reason: Nausea/Vomiting Ondansetron HCl (Zofran Inj) 4 mg IVP Q8 PRN PRN Reason: Nausea/Vomiting Pantoprazole Sodium (Protonix Ec Tab) 40 mg PO DAILY REPLACED BY [facility] Last Admin: 08/19/18 09:04 Dose: 40 mg Tramadol HCl (Ultram) 50 mg PO Q6 PRN PRN Reason: Pain, moderate (4-7) Last Admin: 08/18/18 22:17 Dose: 50 mg - Labs Labs: 08/18/18 09:29 08/18/18 09:29
--- NOTE | 2018-08-29 10:21 | OP ---
OPERATIVE REPORT -Operative Report Date of Procedure: 08/15/2018 Surgeon: Dr. Patel Marketing Account Manager: Dr. Christo Hazel PGY3 Type of Anesthesia: General Endo Pre-Operative Diagnosis: right colon CA Operative Findings: Post-Operative Diagnosis: same Operation Performed: robotic right hemicolectomy Brief History: This is a 78-year-old man who is referred by Dr. Mj Babb with a right-sided colon lesions and 2 polyps in the right colon. She underwent endoscopy with verification and positive biopsy for adenocarcinoma. He now undergoes surgery. Description of the Procedure: The patient was brought to the operating room and after induction of general endotracheal anesthesia he was prepped and draped usual sterile manner. The robotic trochars were placed strategically for a right colon colectomy. After taking control of the robotic device the right colic gutter was incised with electrocautery also using blunt and sharp dissection. The right colon was then mobilized to the level of the splenic flexure and midtransverse colon. Once this was completed the middle colic vessels were identified and an area between the middle colic vessels was opened with A cautery. The colon was transected at this mid transverse colon level with a GI stapler. The distal ileum was transected as well in a similar manner approximately 12 cm from the ileocecal valve. The mesentery was dissected and desiccated with monopolar cautery. The middle colic vein was inadvertently entered and immediately repaired. Once the mesenteric origin of the operation was complete the specimen was relieved and left in situ. The colon was then anastomosed to the ileum and a handsewn manner using 3-0 Vicryl for the mucosa and the serosa. The rent in the mesentery was closed with continuous 3-0 Vicryl. At this point all counts were correct and hemostasis was deemed adequate. A small incision was made through the previous umbilical incision and extended to allow for retrieval of the specimen. The specimen was removed appropriately marked and sent to pathology for analysis. The midline umbilical incision was closed with multiple continuous 3-0 PDS suture. Skin sites were closed with 4-0 Monocryl. A clean dressing was applied. The patient went then awakened extubated and brought to recovery room in stable condition. Specimen/Specimens Removed: ascending colon. terminal ileum Estimated Blood Loss: EBL {In ML}: 500 Blood Products Given: N/A Drains Used: No Drains Post-Op Condition: Good Date of Surgery/Procedure: 08/15/18 Time of Surgery/Procedure: 10:00 [facility]
== END 2018-08-19 12:23 | disposition home or self-care (01) | DRG 330 ==
LOC: H.OPSURG 07:17 → H.ICU/CCU 14:41 → H.MEDSURG1 08-16 15:17
PROVIDERS: ADMIT Surgery; ATTEND Surgery
PROC: 8E0W4CZ Robotic Assisted Procedure of Trunk Region, Percutaneous Endoscopic Approach (ICD-10-PCS; 2018-08-15)
PROC: 0DTF4ZZ Resection of Right Large Intestine, Percutaneous Endoscopic Approach (ICD-10-PCS; principal; 2018-08-15 09:00)
DX: C18.2 Malignant neoplasm of ascending colon (principal); K56.7 Ileus, unspecified; J98.11 Atelectasis; K21.9 Gastro-esophageal reflux disease without esophagitis; N40.0 Benign prostatic hyperplasia without lower urinary tract symptoms; H26.9 Unspecified cataract; M19.90 Unspecified osteoarthritis, unspecified site; R53.1 Weakness